=== PATIENT | female | born 1945 | race Caucasian/White ===

== ENCOUNTER 2016-05-30 08:20 | Emergency (ER) | payer OTHER ==
[~2016-05-30] VITALS: Wt 53.0 kg
--- NOTE | 2016-05-30 09:38 | RADRPT ---
PROCEDURE: Left foot series. CLINICAL INDICATION: Left heel pain TECHNIQUE: Three views of the left foot are available for review. COMPARISON: None available FINDINGS: There is normal mineralization and alignment of the bones of the left foot. Lisfranc's joint appear s intact. There is no evidence of acute fracture or dislocation. There are mild degenerative orta e of the first metatarsal phalangeal joint. Remainder of joint spaces appear grossly well maintaine d. There is a moderate plantar heel spur. The soft tissues are within normal limits. IMPRESSION: 1. Mild degenerative changes of the first metatarsal phalangeal joint. 2. Moderate plantar heel spur. RPTAT: KK .Kristian Klein MD, MD Date Time Electronically viewed and signed by .Kristian Klein MD, on 05/30/2016 09:38 .B/
[2016-05-30] MEDS ORDERED: IBUP400T22 PO (10:21)
[2016-05-30] MEDS ORDERED: CLOT30CR24 TOP (10:21)
--- NOTE | 2016-05-30 10:35 | ERD ---
ER Documentation Chief Complaint Date/Time DATE: 05/30/16 TIME: 10:31 Chief Complaint LEFT HEEL REDNESS FOR 1 MONTH. NO DRAINAGE OR OPEN AREA NOTED. HPI This is a 71-year-old female that presents to the ER with left heel pain for the last month. Patient states that the area has a lot of dry skin and that she noticed a crack in her heel. Patient has not had any history of trauma. She denies any numbness or tingling of the area. She denies any fevers or chills. She denies any swelling of her foot or leg. ROS 12 point review of systems was done, all negative except per HPI. Medications Home Meds Active Scripts Ibuprofen* (Motrin*) 400 Mg Tab, 400 MG PO Q6, #30 TAB Prov:MISSY VILLAGOMEZ 05/30/16 Clotrimazole* (Clotrimazole* AF) 1% - 30 Gm Cream.gm., 1 APPLIC TOP BID for 7 Days, TUB Prov:MISSY VILLAGOMEZ 05/30/16 Allergies Allergies: Coded Allergies: No Known Allergy (Unverified , 05/30/16) PMhx/Soc History of Surgery: No Anesthesia Reaction: No Hx Neurological Disorder: No Hx Respiratory Disorders: No Hx Cardiac Disorders: Yes (HTN) Hx Psychiatric Problems: No Hx Miscellaneous Medical Probl: Yes (DM) Hx Alcohol Use: No Hx Substance Use: No Hx Tobacco Use: No Physical Exam Vitals Vital Signs Date Time Temp Pulse Resp B/P Pulse Ox O2 Delivery O2 Flow Rate FiO2 05/30/16 08:27 98.2 91 20 170/78 100 Physical Exam GENERAL: The patient is well developed and appropriate for usual state of health , in no apparent distress. HEENT: Atraumatic. CHEST: Clear to auscultation bilaterally. There are no rales, wheezes or rhonchi. HEART: Regular rate and rhythm. No murmurs, clicks, rubs or gallops. ABDOMEN: Soft, nontender and nondistended. Good bowel sounds. No rebound or guarding. No gross peritonitis. No gross organomegaly or masses. No Paul sign or McBurney point tenderness. BACK: No midline or flank tenderness. EXTREMITIES: Patient is tender to palpation at the left heel there is an area of dry skin with 1 crack, there is no surrounding erythema or discharge. + 2 pedal pulses. Normal range of motion of the foot. No ankle pain no have redness or swelling. normal sensations NEURO: Alert and oriented. Procedures/MDM This is a 71-year-old female presents to the ER for left heel pain. Patient did have a heel spur. Patient afebrile and well-appearing. Chest full range of motion of her foot does not have that she of trauma. I doubt osteomyelitis or any other infectious process. She does have very dry skin at the heal which has caused the skin to break, however there was no signs of symptoms of any infections. She will be sent home with clotrimazole with ibuprofen. She needs to follow-up with her primary care doctor within 1-2 days return to ER sooner symptoms worsen. My medical decision making was shared with the patient's understands and agrees with plan. Departure Diagnosis: Primary Impression: Heel pain Condition: Stable Patient Instructions: Heel Spur Additional Instructions: Llame al doctor MAANA y catia anu FADY PARA DENTRO DE 1-2 JACOBS.Dgale a la secretaria que nosotros le instruimos hacer esta fady.Avise o llame si rivas condicin se empeora antes de la fady. Regresa aqui si peor o no mejor. MISSY VILLAGOMEZ May 30, 2016 10:35
== END 2016-05-30 10:29 | disposition home or self-care (01) ==
LOC: FTE 08:20
DX: M79.672 Pain in left foot (principal); E11.9 Type 2 diabetes mellitus without complications; I10 Essential (primary) hypertension